=== PATIENT | female | born 1950 | race Caucasian/White ===

== ENCOUNTER 2016-05-20 13:00 | Inpatient (IN) | payer MEDICARE, MEDICAID ==
[~2016-05-20] VITALS: Ht 157.5 cm; Wt 95.5 kg
--- NOTE | ~2016-05-20 | DS ---
PATIENT'S NAME: ANTHONY COLLINS [facility] AGE: 65 Y [address] ROOM: [facility] [place], [place] [address] LOCATION: G3 ADMIT DATE: 05/26/2016 Discharge Summary DISCHARGE DATE: 05/29/2016 FAMILY PHYSICIAN: Racquel Wallace APRN ATTENDING PHYSICIAN: Boubacar Marsh This 65-year-old lady was admitted electively for lumbar fusion. She had grade 1 spondylolisthesis at the L4-L5 level and also has spinal stenosis at L3-L4 and L4-L5. She was taken to the operating room on the day of admission, had decompressive laminectomy at L3-L4 and L4-L5, and went on to have a transforaminal lumbar interbody fusion with TLIF at L3-L4 and L4-L5 along with instrumentation with pedicle screws and rods and posterolateral fusion. The procedure was carried out using the O-arm for placement of the pedicle screws. Postoperatively, she did quite well, leg pain was completely gone, and she was seen in consultation by Dr. Montelongo as well as the physical therapist and occupational therapist and the conclusion was that she would benefit from inpatient rehabilitation. She was subsequently transferred to the inpatient rehabilitation unit on 05/29/2016. At that time, the Hemovac was still placed in because she was draining more than 100 mL and the eventual plan is to remove the Hemovac a day or two after she has been transferred. The blood loss from the wound is less than 100 mL. FINAL DIAGNOSES: 1. Lumbar spondylolisthesis at L4-L5, grade 1. 2. Lumbar spinal stenosis at L3-L4 and L4-L5. MD YANETH LEBRON/cristina /[id number] d: 06/04/167 t: 06/09/16 1623, DISCHARGE SUMMARY
--- NOTE | ~2016-05-20 | OR ---
PATIENT'S NAME: ANTHONY COLLINS [facility] AGE: 65 Y [address] ROOM: [address] [place] [id number] LOCATION: [facility] ADMIT DATE: 05/26/2016 OR/Procedure Report DISCHARGE DATE: FAMILY PHYSICIAN: SUSAN STEIN APRN ATTENDING PHYSICIAN: Boubacar Marsh SURGEON: Boubacar Marsh MD WORD PROCESSOR: DATE OF PROCEDURE: 05/26/2016 PREOPERATIVE DIAGNOSES: 1. Lumbar spinal stenosis, L3-L4 and L4-L5. 2. L4-L5 spondylolisthesis, grade 1. POSTOPERATIVE DIAGNOSES: 1. Lumbar spinal stenosis, L3-L4 and L4-L5. 2. L4-L5 spondylolisthesis, grade 1. OPERATIONS PROPOSED AND PERFORMED: 1. Decompressive lumbar laminectomy at L3-L4 and L4-L5. 2. Transforaminal lumbar interbody fusion (TLIF) L3-L4 and L4-L5. 3. Posterior lateral fusion, L3-L4 and L4-L5. 4. Instrumentation using the July 3 system. 5. Insertion of a titanium spacer cage autograft. 6. Microscope neuronavigation using an O arm for placement of pedicle screws. 7. Fluoroscopy with interpretation. 8. Microscope. DESCRIPTION OF PROCEDURE: Under general anesthesia, the patient was positioned prone. The back was prepped and draped in the usual fashion. A midline linear incision was carried out extending from the spinous processes of L1 to the sacrum. The fascia was incised on either side of the midline. The paraspinal muscles were reflected from the lamina of L2, L3, L4, and L5 bilaterally. During this process, we used fluoroscopy to definitely determine our location. After exposing the lamina of L2 to L5, the O-arm clamp was fixed to the L2 spinous process and the plate holding the beads. The beads were then attached to the clamp. Camera was brought in. Camera recognized the beads. Next, the O-arm was then brought in. The wound was filled with sterile saline and then we used the O-arm to first of all get a scan to make sure that we covered the areas that we wanted to cover. Next, the whole spine was then scanned in the area we were interested in, fed to the computer, and thus we had the lumbar lamina placed on the computer. Having done this, we using the images on the computer projected onto the monitors, we were then able to go ahead and put the screws through the L3, L4, and L5 pedicles on either side into the vertebral bodies. After the placement of the screws, we then went PATIENT'S NAME: ANTHONY COLLINS [facility] AGE: 65 Y [address] ROOM: [place] [address] LOCATION: [facility] ADMIT DATE: 05/26/2016 OR/Procedure Report DISCHARGE DATE: FAMILY PHYSICIAN: SUSAN STEIN APRN ATTENDING PHYSICIAN: Boubacar Marsh ahead and scanned the patient again in the lumbar region and on reviewing the scan, it showed that the pedicle screws were in good position. The O-arm was then removed. Next, the spinous processes of L3, L4, and L5 were removed. The lamina was thinned out using the drill. Microscope was brought in. With the aid of the microscope, we did a complete laminectomy of L3, L4, and L5. At the L4-L5 segment, there was severe stenosis. At the L3-L4 segment, there was moderate stenosis. After adequately decompressing the canal at these levels, this entailed doing partial medial facetectomy and foraminotomy at these levels. We then directed our attention to doing the transforaminal lumbar interbody fusion using cages, titanium spacers. With the aid of the microscope and fluoroscopy, we were able to identify the L4-L5 segment. Unfortunately, the disk space was extremely narrow and would only take the width of the [place] knife. However, painstakingly, we went as far lateral as could so as to sneak in. We started by using the endplate carlitos, we started with a smallest one. We were able to tap it into the disk space and rotated it and doing so, we were able to get this carried out of the endplates more significantly were able to distend the disk space, we went ahead and we started with the size 6, went onto size 7, and then a size 8. After we did this, each time we carried this out, we go ahead and use the pituitary rongeurs to remove the plates as well as the remnants of the disk left in that disk space. After this had been done, I should point out that each time we did this we did use fluoroscopy to make sure that we were anterior enough, but at the same time, that we were not to far anterior with the carlitos. Next, we then used the sizer to get the appropriate size titanium spaces that we needed to use. After we had gotten this, we then got the titanium spacer, used 7 x 28 x 9, 6 degree angle and prior to tapping it into the empty disk space, we filled it with the patient's bone which we had gotten from the laminectomy and after filling the spacer with the bone, we then tapped above the spacer and the bone in it into the now empty disk space and this was done under fluoroscopy which then enabled us know that we were anterior enough. After this was done, we then directed our attention to the L3-L4 segment. I should point out that there was quite a lot of congested epidural vessels and therefore we had quite a lot of epidural bleeding which we were able to control with pressure as well as using the bipolar cautery. Next, we directed our attention to the L3-L4 level. At the L3- L4 level, we did a similar thing and the spaces we use for the L3-L4 level were the same as we used for the L4-L5 level. After this was done, we got hemostasis, but we also got extra hemostasis by using a powdered Gelfoam that was soaked in thrombin and most of this was washed out prior to closure of the wound. Next, by this time, there was not much epidural bleeding. Next, we then got the rods which we placed in the receptacle on the pedicle screws. The length of the rods we used was 60 and the set screws were then placed over the rods and tightened. This was carried out uneventfully. After this was done, the wound was thoroughly irrigated with bacitracin irrigation. A drain was then placed in the wound, it was placed in the epidural space and also between the muscle layers and brought out through a separate stab wound on the skin. PATIENT'S NAME: ANTHONY COLLINS [facility] AGE: 65 Y [address] ROOM: [address] [address] LOCATION: [facility] ADMIT DATE: 05/26/2016 OR/Procedure Report DISCHARGE DATE: FAMILY PHYSICIAN: SUSAN STEIN APRN ATTENDING PHYSICIAN: Boubacar Marsh The wound was then closed in layers; first the muscle and the fascia, subcutaneous tissue, and finally the skin. The patient tolerated the procedure well and was taken to the recovery room. ADDENDUM: While we were exposing the lamina, we also did expose the transverse processes, and after we had finished the TLIF, we then washed off the bone and placed it over the transverse processes which was quite easily seen on the right side. On the left side, we did place the bone outside the facet joints because exposure of the transverse processes was quite difficult on the left side. MD YANETH LEBRON/cristina /[id number] d: 05/26/167 t: 06/04/16 1352, OPERATIVE SUMMARY
--- NOTE | ~2016-05-20 | CON ---
PATIENT'S NAME: ANTHONY COLLINS [facility] AGE: 65 Y [address] ROOM: [place] [address] LOCATION: [facility] ADMIT DATE: 05/26/2016 Consultation DISCHARGE DATE: FAMILY PHYSICIAN: SUSAN STEIN APRN ATTENDING PHYSICIAN: Boubacar Marsh REFERRING PHYSICIAN: Santo Hoang MD This is a consult for Dr. Marsh. HISTORY OF PRESENT ILLNESS: This pleasant 65-year-old lady is referred for rehab/GIRP evaluation. She is at the present time status post: 1. Decompression at L3-L4 and L4-L5 with laminectomy. 2. Transforaminal lumbar interbody fusion (TLIF) of L3-L4 and L4-L5. 3. Posterolateral fusion of L3-L4 and L4-L5. 4. Instrumentation using July-3 system. 5. Insertion of titanium spacer cage autograft. 6. Microscope neuronavigation. 7. At the present time, she can comprehend, express without difficulty; this was done on 05/26/2016; details on records; to relieve lumbar spinal stenosis with marked difficulty with ambulation and pain with grade 1 spondylolisthesis. PAST MEDICAL HISTORY: 1. She has Parkinson, had difficulty with mobilization and had weakness in bilateral lower extremities, frequent falls, and she has also had some incontinence of bowel and bladder on and off. 2. She also has a history of tubal ligation. 3. Status post thyroidectomy. 4. Lumpectomy of right breast, benign. 5. Right knee arthroscopy. 6. Depression. 7. Hypertension. 8. Asthma. 9. Hypothyroid. 10. Moderately obese. PHYSICAL EXAMINATION: GENERAL: She is alert and oriented x3. VITAL SIGNS: Blood pressure 130/44, temperature 99.8 to 98.4, pulse 84, respirations 15. She is 5 feet 2 inches and weighs 95.4 kg. EXTREMITIES: She can at the present time move all 4. Muscle strength in bilateral lower extremities 4-/5. Neurologically intact. MEDICATIONS: PATIENT'S NAME: ANTHONY COLLINS [facility] AGE: 65 Y [address] ROOM: [place] [address] LOCATION: [facility] ADMIT DATE: 05/26/2016 Consultation DISCHARGE DATE: FAMILY PHYSICIAN: SUSAN STEIN APRN ATTENDING PHYSICIAN: Boubacar Marsh She is on the following medications: 1. Neosporin. 2. Zoloft. 3. Multivitamin. 4. Singulair. 5. Lasix. 6. Zyrtec. 7. Os-Danny with D. 8. Algin. 9. Asprin. 10. Protonix. 11. Tums. 12. Flonase. 13. Astelin nasal spray. 14. Crestor. 15. Lopressor. 16. Sinemet. 17. Dulera. 18. Dilaudid. 19. Lactated Ringer. 20. Naloxone. 21. Zofran. 22. . 23. Bisacodyl. 24. NaCl 0.9%. 25. Valtrex. 26. Nitroglycerin. 27. Robitussin. 28. Adrenaline. 29. Colace. 30. Cleocin. 31. Albuterol. 32. Tylenol. 33. Phenergan. 34. Hydromorphone. 35. Fentanyl. 36. Vancomycin. ASSESSMENT AND PLAN: She can at the present time transfer with moderate dental laboratory assistant, can take a few steps. We will go ahead and start from PT and OT, please see the orders. I feel this young lady will benefit from PATIENT'S NAME: ANTHONY COLLINS [facility] AGE: 65 Y [address] ROOM: [place] [address] LOCATION: [facility] ADMIT DATE: 05/26/2016 Consultation DISCHARGE DATE: FAMILY PHYSICIAN: SUSAN STEIN APRN ATTENDING PHYSICIAN: Boubacar Marsh intensive rehabilitation to be able to take care of herself. She lives alone and will be able to achieve that in about 2 weeks or so on intensive rehab. I did explain plan of care to her in detail and answered all her questions, and she verbalized understanding and in agreement. Thank you for this referral. Please see the orders that I have instructed for possible use of Lovenox if okay with Dr. Marsh. SANTO HOANG MD WMS/modl /[id number] d: 05/27/162134 t: 05/29/16 0841, CONSULTATION REPORT
[2016-05-20] MEDS ORDERED: LOPRESSOR25 MG PO (13:16)
[2016-05-20] MEDS ORDERED: ADVAIR 500-501 EACH INH (13:17)
[2016-05-20] MEDS ORDERED: PROVENTIL OR V6.7 GM INH (13:18)
[2016-05-20] MEDS ORDERED: OSCAL500 MG PO (13:20)
[2016-05-20] MEDS ORDERED: ALIGN4 MG PO (13:20)
[2016-05-20] MEDS ORDERED: CALCIUM 600 +1 EA13 PO (13:21)
[2016-05-20] MEDS ORDERED: ASPIRIN325 MG PO (13:21)
[2016-05-20] MEDS ORDERED: SINEMET 25/2501 TAB PO (13:22)
[2016-05-20] MEDS ORDERED: COLACE100 MG PO (13:23)
[2016-05-20] MEDS ORDERED: CRESTOR5 MG PO (13:24)
[2016-05-20] MEDS ORDERED: EPIPEN0.3 MG IM (13:25)
[2016-05-20] MEDS ORDERED: LASIX40 MG PO (13:25)
[2016-05-20] MEDS ORDERED: MOBIC7.5 MG PO (13:26)
[2016-05-20] MEDS ORDERED: THERA-VITE W/ B1 TAB PO (13:26)
[2016-05-20] MEDS ORDERED: NEXIUM40 MG PO (13:27)
[2016-05-20] MEDS ORDERED: NASONEX17 GM NOSE (13:27)
[2016-05-20] MEDS ORDERED: NITROSTAT0.4 MG SL (13:28)
[2016-05-20] MEDS ORDERED: ALBUTEROL2.5 MG/31 INH (13:29)
[2016-05-20] MEDS ORDERED: PROLIA60 MG/ML SUB-Q (13:30)
[2016-05-20] MEDS ORDERED: ROBAFEN DM CGH118 ML PO (13:31)
[2016-05-20] MEDS ORDERED: SINGULAIR10 MG PO (13:32)
[2016-05-20] MEDS ORDERED: TYLENOL EXTRA500 MG PO (13:32)
[2016-05-20] MEDS ORDERED: ZOLOFT100 MG PO (13:33)
[2016-05-20] MEDS ORDERED: ZYRTEC10 MG PO (13:33)
[2016-05-20] MEDS ORDERED: VALTREX500 MG PO (13:39)
[2016-05-20] MEDS ORDERED: CLEOCIN150 MG PO (13:39)
[2016-05-20] MEDS ORDERED: NASONEX17 GM (14:32)
[2016-05-26] MEDS ORDERED: TUMS REGULAR ST1 TAB PO (07:24)
[2016-05-26 08:24] LABS: BASOPHIL # 0.1 K/uL (0.0-0.2); BASOPHIL % 0.7 %; EOSINOPHIL # 0.2 K/uL (0.0-0.5); EOSINOPHIL % 1.8 %; HEMATOCRIT 36.9 % (33.0-46.0); HEMOGLOBIN 11.8 g/dL (10.0-15.0); IMMATURE GRANULOCYTE % 0.2 %; LYMPHOCYTE # 1.6 K/uL (0.8-4.0); LYMPHOCYTE % 17.6 %; MCH 30.8 pg (27.0-34.0); MCV 96.3 fl (83.0-98.0); MONOCYTE # 0.7 K/uL (0.0-1.0); MONOCYTE % 8.2 %; MPV 10.7 fl (9.4-12.4); NEUTROPHIL # (ANC) 6.3 K/uL (1.8-7.8); NEUTROPHIL % 71.5 %; NRBC % 0 /100WBC (0-0.00); PLATELET COUNT 219 K/uL (150-450); RBC 3.83 M/uL (3.50-5.50); RDW-CV 12.8 % (11.9-14.6); WBC 8.9 K/uL (4.0-11.0)
[2016-05-26] MEDS ORDERED: PROVENTIL OR V6.7 GM INH (18:15)
--- NOTE | 2016-05-27 04:39 | NUR ---
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
--- NOTE | 2016-05-27 15:33 | NUR ---
Introduced self and CM role to patient. Discussed how she was feeling and how her surgery went. She identified that she lives alone at her home in [place], [place] and there is no family or friends available to help care for her upon discharge. Pt stated that her daughter who lives in [place], [place] is going to bring her a lift chair and motorized scooter, but she can't stay with her mom due to her job and will need to return back quickly. It is not safe for pt to return back to her home without support. Pt does not want to go to a group home. We discussed GIRP option, and told her I will return and we can discuss options when we have a better idea of her progress and what is available. Shortly after visit, RADHA Santos contacted me and said that Dr. Marsh wanted to know the plan for pt. She told him plan for GIRP and he believed it is a good plan. There was a Dr. Montelongo consult made by nurse. 1300 Called Racquel at [facility] to inform her of pt. 1530 Called up to [facility] [address] and asked nurses if they knew the result of consultation, but they weren't sure. Called Racquel and she stated Reginald believes she is a good candidate for GIRP. Racquel stated she will call RADHA Lemus in the morning to inform her on bed availability for pt. Will continue to follow and assist. CM Gl Accountant TH.
--- NOTE | 2016-05-27 17:44 | NUR ---
Significant Event:GROUP HOME SUPERVISOR stopped at 1440. [place] one tab x2 last at 1632. Martin removed at 1715. Hemavac with 290ml out. IV saline lock. Zofran 4mg at 1416 for nausea. Up to chair with 2 assist. Back brace on when OOB. O2 at 2L per nc. Abrasions to face. Redness between breast, abdominal folds, thigh. Follow up:
--- NOTE | 2016-05-28 04:40 | NUR ---
Significant Event: AROUSES EASILY. A/O X 3. LITTLE SLEEPY AFTER PAIN MED GIVEN. IV SALINE LOCKS INTACT X 2. ON CONTINUOUS ETCO2 MONITORING. TAKES FLUIDS, NO NAUSEA. HEARTBURN, GIVEN SPRIT. HELPED AFTERWARDS. BACK DRSGS HAS SMALL AMOUNT BLOODY DRAINAGE NOTED AROUND HEMOVAC AREA. VAC EMPTIED 90ML BLOODY DRAINAGE. PATIENT DENIES ANY NUMBNESS OR TINGLING TO UPPER OR LOWER EXTREMITIES. SOME DIFFICULTY MOVING LEGS, MAINLY LEFT. BILATERAL CALF PNEUMATICS ON. INCENTIVE USAGE THIS SHIFT. AT 0040 PL[address] ON BEDPAN , NO VOID. AT 0045 BLADDER SCANNED FOR 464 ML, REPORTED TO CHARGE NURSE. AT 0200 2 ASSIST UP TO COMMODE WITH WALKER AND GAITBELT, RETURN TO BED AT 0215, NO VOID. ENCOURAGE TO TAKE MORE FLUIDS. Follow up:
--- NOTE | 2016-05-28 06:08 | NUR ---
Significant Event: PATIENT UP TO COMMODE [id number] VOIDED 150ML URINE, 0600 RETURNED TO BED. 2 ASSIST GAITBELT AND WH/WALKER. REPOSITIONED TO LEFT SIDE. ICE BAG TO BACK. Follow up:
[2016-05-28 06:21] LABS: HEMOGLOBIN 9.4 g/dL (10.0-15.0)
--- NOTE | 2016-05-28 09:20 | NUR ---
Racquel from [facility] called and they can accept patient tomorrow at 0900. [address] Marsh and was fine with this plan. 1040 Spoke to the patient and wrote information on the marker board. Updated charge nurse and community organization director Candice. Packet started and orders on the chart.
--- NOTE | 2016-05-28 17:02 | NUR ---
Significant Event: PATIENT ALERT AND ORIENTED X3. BACK DRESSING CHANGED, INCISION APPROXIMATED, LATASHA INTACT, STER[place] BARRIER DRESSING APPLIED. HEMOVAC PATENT/INTACT WITH 185ML OUT. UP TO CHAIR AND COMMODE WITH 1 ASSIST, USE OF WALKER/GAIT BELT, BACK BRACE ON WHEN UP. PATIENT VOIDING WITHOUT DIFFICULTY. O2 AT 2L/NC. RATES BACK PAIN 5-4 ON PAIN SCALE, PAIN WELL CONTROLLED WITH NORCO 1 TAB GIVEN X2 LAST AT 1545. ABRASIONS TO FACE, ABDOMEN, AND THIGH. CSM ASSESSMENTS WNL TO BILATERAL UPPER AND LOWER EXTREMITIES. KNEE HIGH LUPILLO HOSE AND CALF PUMPS ON. PLEASANT AND COOPERATIVE WITH CARES. Follow up: REHAB TOMORROW AT 0900
--- NOTE | 2016-05-29 03:41 | NUR ---
Shift Summary: Patient ambulates with standby assist/walker. Has difficulty and very slow getting OOB. Wears lumbar brace when up. Patient took one norco last at 2107. Going to Rehab today at 0900 to Room 3296.
[2016-05-29 05:32] LABS: HEMATOCRIT 28.6 % (33.0-46.0)
--- NOTE | 2016-05-29 09:04 | NUR ---
Pt alert and oriented. She is one assist transfer with brace, gait belt and walker. Goes slowly but steady. Back dressing dry and intact and changed yesterday. Hemovac in place and 90 ml out last noc. Pt voids in bathroom or on commode. Pt states no numbness, tingling or pain in legs. Only pain is in icision back area. Last norco at 0730 for pain rated at 3. Pt uses IS at 1000. Ate all breakfast and says appetite improving. No nausea. Passes flatus and no BM. Tried to wean off O2 this morni but sats 82-84 without O2, so back on at 2 liters. Pt has skin breakdown bilat cheeks from tape in OR - scabbed and no drng. neosporin on. ALso breakdown Rt thigh possibly from catheter tape. slight blister there. Also redness under breasts. Pt states she is allergic to tape. Also had about 8 hr surgery. Lovenox has been on hold due to large hemovac output. Hgb 9.0 today. Pt has chronic loose cough from her allergies.
[2016-05-29] MEDS ORDERED: MOBIC7.5 MG PO (16:24)
[2016-09-10] MEDS ORDERED: OXYGEN M-15 INH (13:34)
[2016-09-10] MEDS ORDERED: CPAP INH (13:34)
[2016-09-14] MEDS ORDERED: PERCOCET 5-3251 EACH PO (14:40)
== END 2016-05-29 09:49 | DRG 460 ==
LOC: G3N 05-26 06:37
PROVIDERS: ADMIT Neurological Surgery
PROC: 0ST20ZZ Resection of Lumbar Vertebral Disc, Open Approach (ICD-10-PCS; principal; 2016-05-26)
PROC: 0SG10A1 (ICD-10-PCS; 2016-05-26)
DX: M43.16 Spondylolisthesis, lumbar region (principal); G20 Parkinson's disease; I10 Essential (primary) hypertension; M48.06 Spinal stenosis, lumbar region; J45.909 Unspecified asthma, uncomplicated; G25.81 Restless legs syndrome; E78.5 Hyperlipidemia, unspecified; J30.9 Allergic rhinitis, unspecified; F32.9 Major depressive disorder, single episode, unspecified; E03.9 Hypothyroidism, unspecified; Z68.38 Body mass index [BMI] 38.0-38.9, adult
CPT/HCPCS: C1713; J1100; J1170; J2001; J2405; J2550; J3370; J7030; J7040; J7120

== ENCOUNTER 2016-05-29 09:58 | Inpatient (IN) | payer MEDICARE, MEDICAID ==
[~2016-05-29] VITALS: Ht 157.5 cm; Wt 101.3 kg
--- NOTE | ~2016-05-29 | DS ---
PATIENT'S NAME: ANTHONY COLLINS [facility] AGE: 65 Y [address] ROOM: [address] [place] [address] LOCATION: [facility] ADMIT DATE: 05/29/2016 Discharge Summary DISCHARGE DATE: FAMILY PHYSICIAN: Racquel Wallace APRN ATTENDING PHYSICIAN: Santo Montelongo This 65-year-old lady was admitted to Rehab Unit at [facility] on 05/29/2016 and is discharged on 06/05/2016 to home. 1. Unstable gait. 2. Dependent activities of daily self-care. 3. Status post lumbar spine stenosis. 4. Status post decompression laminectomy with TLIF L3-4, L4-5, details on record per Dr. Marsh, and done on 05/26/2016, details are on record. At the present time, she is doing well, alert and oriented x3, feels well. VITAL SIGNS: Vitals are as follows blood pressure 121/64, temperature 98.2, pulse 91, and respiratory rate 16. She is with LSO when up and can walk up to 180 feet x2 and 150 feet x2 and feeling well. She is not to drive until she is reevaluated. I have given her home health and [id number] encounter was completed on 06/04/2016. She is to follow with her family physician as soon as possible. She is on the following medication and all renewal with her family physician. Medication she is on as follows: 1. Ecotrin 325 mg p.o. daily. 2. Azelastine hydrochloride 137 mcg inhalation each nostril twice daily. 3. Align 4 mg everyday p.o. 4. Tums 500 mg 3 times daily. 5. Os-Danny D 500 mg p.o. daily. 6. Sinemet 25/250 1 tablet p.o. at night. 7. Zyrtec 10 mg p.o. daily. 8. Flonase 50 mcg puff 2 sprays each nostril twice daily. 9. Lasix 40 mg in the morning. 10. Anusol HS one suppository twice daily rectally. 11. Lopressor 25 mg p.o. twice daily. 12. Singulair 10 mg p.o. daily. 13. Theragran-M 1 tablet p.o. daily. 14. Neosporin topical as needed. 15. Protonix 40 mg p.o. daily. 16. K tablet 20 mEq p.o. daily. 17. Crestor 5 mg at night. PATIENT'S NAME: ANTHONY COLLINS [facility] AGE: 65 Y [address] ROOM: [address] [address] LOCATION: [facility] ADMIT DATE: 05/29/2016 Discharge Summary DISCHARGE DATE: FAMILY PHYSICIAN: Racquel Wallace APRN ATTENDING PHYSICIAN: Santo Montelongo 18. Zoloft 100 mg in the morning. 19. Dulera 2 puffs inhalation twice. 20. [place] 5/325 1 tablet p.o. q.4-6 as needed, 36 of them. 21. Benadryl 25 mg p.o. q.4 h. as needed. 22. MOM 30 mL at bedtime as needed. 23. Albuterol sulfate 2.5 mg inhalation twice daily. All medications, renewals, and change per her family physician. She will follow with me in 3 weeks. Follow up with Dr. Marsh as soon as he sees fit. She must follow with her family physician as soon as possible. All the above was explained to her in detail. She verbalized understanding and agreement with plan of care. Please, no driving until she is reevaluated. FINAL DIAGNOSES: 1. Unstable gait. 2. Dependent activities of daily self-care. 3. Status post L3-4, L4-5 transforaminal lumbar interbody fusion and decompression laminectomy to relieve spinal stenosis. 4. Chronic obstructive pulmonary disease. 5. Allergic rhinitis. 6. External rectal hemorrhoids. 7. Hypertension. 8. Reflux gastric disease. 9. Depression. 10. Osteoporosis. 11. Possible Parkinson. All the above was explained to the patient in detail. She verbalized understanding and agreement with plan of care. MD MICHELA HERNANDEZ/niralil /[id number] d: 06/05/168 t: 06/06/16924, DISCHARGE SUMMARY
--- NOTE | ~2016-05-29 | CON ---
PATIENT'S NAME: ANTHONY COLLINS [facility] AGE: 65 Y [address] ROOM: [id number] [place], [place] [address] LOCATION: [facility] ADMIT DATE: 05/29/2016 Consultation DISCHARGE DATE: 06/06/2016 FAMILY PHYSICIAN: Racquel Wallace APRN ATTENDING PHYSICIAN: Santo Hoang DATE OF CONSULTATION: 06/02/2016 REFERRING PHYSICIAN: Ivan Manuel MD Team members reporting include Dr. Hoang; Racquel Kemp, social staff worker; Nely Rodarte, RN; Mable Dennis, PT; Babs Kelly, OT; Supriya Saxena, therapeutic rec; and Sister Jennifer Gutierrez, Pastoral Care. CURRENT STATUS: Anthony is a 65-year-old woman who admitted to our inpatient rehab unit on May 29, 2016, following a decompression lumbar laminectomy of L3 to L5, TLIF, and posterolateral fusion with instrumentation. The patient also has a history of severe asthma; osteoporosis; hypertension; restless legs syndrome; obstructive sleep apnea, currently not on CPAP; hypothyroidism; and obesity. The patient is having some difficulty with bleeding hemorrhoids. Anusol was ordered to assist with this. The patient's incisions are open to air. She has some tape abrasions. The patient takes [place] for pain. She can transfer sit to supine at standby; supine to sit, minimal assistance; sit to stand and stand to sit, mod I; and surface to surface transfers, standby. She can walk 200 feet with a four-wheeled walker at standby assistance, and she can climb 8 stairs with 2 railings at contact guard assistance. She can negotiate a ramp at standby assistance. Her goals for PT were set at mod I. the patient is able to dress her upper and lower body at standby; grooming and bathing, standby; toilet and shower transfers, contact guard assistance; and feeding, standby. Her goals have been set for mod I. car transfers are slated for the end of the week. The patient has been very open to pastoral care. DISCHARGE PLAN: The patient is receiving 3 hours of PT and OT Wednesday through Wednesday. The patient has daily rehab, nursing, and physiatry involvement as well as therapeutic recreational services 4 days per week. The patient has shown functional improvement and is progressing. Please see her plan of care for specific goals. Plan is for the patient to discharge on June 06, 2016. The patient will have a trend oximetry done prior to discharge to see if the patient needs oxygen at home. In addition, the patient did want home health care which was lined up. PATIENT'S NAME: ANTHONY COLLINS [facility] AGE: 65 Y [address] ROOM: [place] [address] LOCATION: [facility] ADMIT DATE: 05/29/2016 Consultation DISCHARGE DATE: 06/06/2016 FAMILY PHYSICIAN: Racquel Wallace APRN ATTENDING PHYSICIAN: Santo Hoang FOR SANTO HOANG MD TD/modl /[id number] d: t: 06/12/16 1834, CONSULTATION REPORT
--- NOTE | ~2016-05-29 | HP ---
PATIENT'S NAME: ANTHONY COLLINS [facility] AGE: 65 Y [address] ROOM: [place] [address] LOCATION: [facility] ADMIT DATE: 05/29/2016 History & Physical DISCHARGE DATE: FAMILY PHYSICIAN: SUSAN STEIN APRN ATTENDING PHYSICIAN: Santo Hoang DATE OF SERVICE: HISTORY OF PRESENT ILLNESS: This 65-year-old lady is admitted to rehabilitation unit on 05/29 for continuous medical treatment and intensive rehabilitation. 1. Unstable gait. 2. Dependent activities and self-care with her lumbar spinal stenosis. She is at the present time, status post L3-L4 and L4-L5 decompression laminectomy and allograft cage to relieve spinal stenosis with weakness in bilateral lower extremity and frequent falling, and she is still at risk of falling. 3. She is admitted for intensive rehabilitation and continuous medical treatment. 4. I saw this lady in initial consult and on 05/27/2016, recommended intensive rehabilitation for about 2 weeks aiming to discharge to home on modified independence and on admission day, 05/29/2016, I re-evaluated her and she is a good candidate for intensive rehabilitation for about 2 weeks aiming to discharge to home on modified independence. She is status post: 1. Decompression laminectomy L3-L4 and L4-L5. 2. Translumbar interbody fusion, TLIF of L3-L4 and L4-L5. 3. Posterior lateral fusion of L3-L4 and L4-L5. 4. Using July 3 system instrumentation. 5. Insertion of titanium spacer cage allograft using microscopic navigation done on 05/26/2016, details on record. PHYSICAL EXAMINATION: GENERAL APPEARANCE: She is at the present time, alert and oriented on admission. VITAL SIGNS: Her vitals were as follows; blood pressure 111/48, temperature 98.9, pulse 94, and respiratory rate 16. She is 5 feet 2 inches tall and weighs 95.4 kg. MUSCULOSKELETAL: She is at the present time, weightbearing as tolerated with hands-on. She is on regular diet. ALLERGIES: SHE IS ALLERGIC TO CEPHALOSPORIN. PAST MEDICAL HISTORY: PATIENT'S NAME: ANTHONY COLLINS [facility] AGE: 65 Y [address] ROOM: [place] [address] LOCATION: [facility] ADMIT DATE: 05/29/2016 History & Physical DISCHARGE DATE: FAMILY PHYSICIAN: SUSAN STEIN APRN ATTENDING PHYSICIAN: Santo Hoang Past history of significance as follows: 1. Parkinson. 2. Incontinence of bowel and bladder on and off. 3. Thyroidectomy. 4. Status post right breast lumpectomy, benign. 5. Hypertension. 6. Hypothyroidism. 7. Moderately obese. 8. Right knee scope per history. 9. Asthma. 10. History of tubal ligation. At the present time, we will put on intensive PT and OT 3 hours per day, 15 hours per week for the coming 2 weeks aiming to discharge to home at modified independence. We will send in a.m. for UA. Did send in a.m. on 05/30 for UA, CBC, and CMS, and it came as UA within normal limits except for bacteria many, but there is no complaint, we will watch. LABORATORY DATA: 1. CBC: WBC 9.4, RBC 2.67, hemoglobin 8.2, hematocrit 26.2, and platelets 165,000. 2. CMS: Sodium 143, and potassium 3.4, we will supplement. 3. Chloride 105, CO2 of 35, BUN 11, creatinine 0.5, and glucose 102. 4. Prealbumin is 6.0. ASSESSMENT AND PLAN: 1. She is able to tolerate working on NuStep at level 3 for about 10 minutes. 2. She can ambulate up to 70 feet with contact guard from Dr. Marsh. 3. We will keep the lumbosacral orthosis on until she is seated and they will remove it for her showering and after drying will put it on. We will continue to watch her CMS and hemoglobin and hematocrit. 4. Plan is to put on intensive therapy, PT and OT for 3 hours per day, 15 hours per week for about 2 weeks aiming to discharge on modified independence and follow on outpatient basis. 5. We will keep on Dr. Marsh's census to follow and for hospitalist census to follow also. 6. All the above was explained to her in detail and her questions were answered in detail. She verbalized understanding and agreement. SANTO HOANG MD PATIENT'S NAME: ANTHONY COLLINS [facility] AGE: 65 Y [address] ROOM: [place] [address] LOCATION: [facility] ADMIT DATE: 05/29/2016 History & Physical DISCHARGE DATE: FAMILY PHYSICIAN: SUSAN STEIN APRN ATTENDING PHYSICIAN: Santo Hoang/cristina /[id number] D: [id number] T: [id number] HISTORY & PHYSICAL
--- NOTE | ~2016-05-29 | DS ---
PATIENT'S NAME: ANTHONY COLLINS [facility] AGE: 65 Y [address] ROOM: [place] [address] LOCATION: [facility] ADMIT DATE: 05/29/2016 Discharge Summary DISCHARGE DATE: 06/06/2016 FAMILY PHYSICIAN: Racquel Wallace APRN ATTENDING PHYSICIAN: Santo Montelongo ADDENDUM: This lady was supposed to be discharged on 06/05 and it was put on hold until 06/06 when she was discharged. Overnight, she did undergo an overnight oximetry. Details on record and she was given oxygen to use at home, again details on record. All medications and diagnoses are the same. She was discharged on 06/06 and I will see her in about 4 weeks on outpatient basis. All the above was explained to her. She verbalized understanding and agreement with plan of care. MD MICHELA HERNANDEZ/cristina /[id number] d: 06/10/16509 t: 06/10/16 08, DISCHARGE SUMMARY
--- NOTE | ~2016-05-29 | CON ---
PATIENT'S NAME: ANTHONY COLLINS [facility] AGE: 65 Y [address] ROOM: [place] [address] LOCATION: [facility] ADMIT DATE: 05/29/2016 Consultation DISCHARGE DATE: FAMILY PHYSICIAN: SUSAN STEIN APRN ATTENDING PHYSICIAN: Santo Montelongo DATE OF CONSULTATION: 05/30/2016 REFERRING PHYSICIAN: DARIO BLACKBURN MD REQUESTING PHYSICIAN: Santo Montelongo MD CONSULTING PHYSICIAN: Dario Blackburn MD REASON FOR CONSULTATION: Medical management in acute rehab unit. HISTORY OF PRESENT ILLNESS: The patient is a 65-year-old female with past medical history further detailed below. She has undergone an elective decompressive lumbar laminectomy of L3- L4 as well as L4-L5 with pedicle screws and instrumentation. She was transferred to [facility] on the . She is currently getting physical therapy, and an internal medicine consult was requested. At this point, her complaint is constipation, which has been present for almost a week. She denies any other nausea, vomiting, chest pain, shortness of breath, or syncope. REVIEW OF SYSTEMS: All systems have been reviewed and are negative aside from the pertinent positives mentioned above. PAST MEDICAL HISTORY: As reported by the patient, is significant for: 1. Severe asthma. 2. Osteoporosis. 3. Essential hypertension. 4. Restless legs syndrome. 5. Obstructive sleep apnea, currently not on CPAP. 6. Hypothyroidism. 7. Obesity. PAST SURGICAL HISTORY: Significant for lumbar laminectomy as above. PATIENT'S NAME: ANTHONY COLLINS [facility] AGE: 65 Y [address] ROOM: [place] [address] LOCATION: [facility] ADMIT DATE: 05/29/2016 Consultation DISCHARGE DATE: FAMILY PHYSICIAN: SUSAN STEIN APRN ATTENDING PHYSICIAN: Santo Montelongo SOCIAL HISTORY: The patient denies any history of or ongoing toxic habits. FAMILY HISTORY: Reviewed and noncontributory due to known underlying etiology for her presentation. CURRENT MEDICATIONS: Include: 1. Potassium. 2. Sertraline. 3. Multivitamin. 4. Montelukast. 5. Furosemide. 6. Cetirizine. 7. Calcium carbonate. 8. Align. 9. Aspirin. 10. Pantoprazole. 11. Rosuvastatin. 12. Metoprolol. 13. Fluticasone. 14. Carbidopa and levodopa. 15. Azelastine. 16. Mometasone. 17. Albuterol. 18. Acetaminophen. 19. Valacyclovir as needed. 20. Colace. 21. Clindamycin as needed for dental procedures. 22. Bisacodyl. PHYSICAL EXAMINATION: VITAL SIGNS: Temperature 98.4, pulse is 85, respirations are 20, blood pressure 130/64, and saturating 98% on room air. GENERAL: Appears morbidly obese. An elderly female, in no acute distress. NEUROLOGIC: Nonfocal. EYES: Pupils are equal and reactive to light. LYMPHATIC: No cervical lymphadenopathy. ENDOCRINE: No thyromegaly. LUNGS: Clear to auscultation in all reid. HEART: Rate is regular with no appreciable murmurs, gallops, or rubs. GASTROINTESTINAL: Abdomen is obese, soft, nontender, and nondistended. Slightly diminished bowel sounds. GENITOURINARY: No costovertebral angle tenderness. PATIENT'S NAME: ANTHONY COLLINS [facility] AGE: 65 Y [address] ROOM: [place] [address] LOCATION: [facility] ADMIT DATE: 05/29/2016 Consultation DISCHARGE DATE: FAMILY PHYSICIAN: SUSAN STEIN APRN ATTENDING PHYSICIAN: Santo Montelongo VASCULAR: 2+ pedal pulses. MUSCULOSKELETAL: Deferred. PSYCHIATRIC: Appropriate mood, cognition, and affect. SKIN: Multiple abrasion jhaveri where surgical tape was used on her face, I believe this is probably related to her hyperallergenic state. LABORATORY DATA: Studies available so far are lab results which are significant for potassium of 3.4, bicarbonate of 35, anion gap of 6.4, albumin of 1.7, prealbumin of 6, hemoglobin of 8.2, and UA which shows 500 leukocytes. IMPRESSION AND RECOMMENDATIONS: This is a 65-year-old female who is recuperating from a lumbar laminectomy. At this point, we will make the following recommendations. 1. Hypoalbuminemia/severe protein-calorie malnutrition based on her prealbumin of 6. The patient should be placed on a high-protein diet. We might consider investigating the underlying etiology for her low albumin and prealbumin. 2. Anemia. The patient has had several colonoscopies recently for recurrent polyps. We will check her iron studies as well as B12 and folate as these may be somehow related to her protein-calorie malnutrition. We might have to start her on iron, but not until we achieve a good bowel regimen. 3. Severe asthma. She has been continued on her inhalers. 4. Restless legs syndrome. She has been continued on her levodopa and carbidopa. 5. Obstructive sleep apnea. The patient may benefit with a CPAP study once she is discharged. 6. Accelerated hypertension. We will monitor the patient's blood pressure and continue her on her current regimen. 7. Additional management will depend on clinical course. Thank you for involving us in the care of this patient. We will follow along. Total time dedicated to this consult is 35 minutes. MD MARLINE SENA/cristina /[id number] d: 05/30/16 1806 t: 06/02/16 1243, CONSULTATION REPORT
--- NOTE | ~2016-05-29 | PUL ---
PATIENT'S NAME: ANTHONY COLLINS [facility] AGE: 65 Y [address] ROOM: [address] [address] LOCATION: [facility] ADMIT DATE: 05/29/2016 Pulmonary DISCHARGE DATE: 06/06/2016 FAMILY PHYSICIAN: Racquel Wallace APRN ATTENDING PHYSICIAN: Santo Montelongo NAME OF PROCEDURE: Overnight Pulse Oximetry DATE OF PROCEDURE: June 05 to June 06, 2016 REASON FOR EXAM: Nocturnal hypoxemia RESULTS: The test was performed on room air. The recording time was 9 hours, 55 minutes, and 52 seconds, with a total valid sampling time of 9 hours, 55 minutes, and 44 seconds. The highest pulse was 99, lowest pulse was 65, with a mean pulse of 80. The highest SpO2 was 96%, lowest SpO2 was 68%, with a mean SpO2 of 88.1%. The patient spent 4 hours, 19 minutes, and 12 seconds with SpO2 less than 89%, representing 43.5% of the total sleep time. The desaturation event index was significantly elevated at 31.1. PHYSICIAN INTERPRETATION: The patient has evidence of severe nocturnal hypoxia and would qualify for supplemental oxygen as per Medicare criteria. However, because of the severity of her nocturnal hypoxia with an elevated desaturation event index a sleep study is recommended at this time. MD KRISS ZAMORA/gianluca /[id number] dtt: 06/09/16 1554 , SHAWANDA MOSES dtd: 06/09/16 0822
[~2016-05-29 09:58] MED LIST: ADVAIR 500-501 EACH INH; ALBUTEROL2.5 MG/31 INH; ALIGN4 MG PO; ASPIRIN325 MG PO; CALCIUM 600 +1 EA13 PO; CLEOCIN150 MG PO; COLACE100 MG PO; CRESTOR5 MG PO; EPIPEN0.3 MG IM; LASIX40 MG PO; LOPRESSOR25 MG PO; MOBIC7.5 MG PO; NASONEX17 GM; NASONEX17 GM NOSE; NEXIUM40 MG PO; NITROSTAT0.4 MG SL; OSCAL500 MG PO; PROLIA60 MG/ML SUB-Q; PROVENTIL OR V6.7 GM INH; ROBAFEN DM CGH118 ML PO; SINEMET 25/2501 TAB PO; SINGULAIR10 MG PO; THERA-VITE W/ B1 TAB PO; TUMS REGULAR ST1 TAB PO; TYLENOL EXTRA500 MG PO; VALTREX500 MG PO; ZOLOFT100 MG PO; ZYRTEC10 MG PO
[2016-05-29 14:15] LABS: BILIRUBIN URINE NEGATIVE (NEGATIVE); BLOOD URINE 10 /UL (NEGATIVE); COLOR URINE YELLOW (YELLOW); GLUCOSE URINE NEGATIVE (NEGATIVE); KETONE URINE NEGATIVE (NEGATIVE); LEUKOCYTES URINE 500 /UL (NEGATIVE); NITRITE URINE NEGATIVE (NEGATIVE); PROTEIN URINE NEGATIVE (NEGATIVE); SPEC GRAVITY URINE 1.015 (1.003-1.035); UROBILINOGEN URINE NORMAL (NORMAL)
[2016-05-29 14:16] LABS: TURBIDITY URINE 2+ (CLEAR)
[2016-05-29 14:22] LABS: WBC URINE 20-50 #/HPF (NEGATIVE)
[2016-05-29 14:23] LABS: BACTERIA URINE MANY (NEGATIVE); MUCUS URINE 1+ (NEGATIVE); RENAL EPITH URINE 0-2 #/HPF (NEGATIVE); WBC CAST URINE 0-2 #/LPF (NEGATIVE)
[2016-05-29] MEDS ORDERED: MOBIC7.5 MG PO (16:24)
[2016-05-30 07:10] LABS: BASOPHIL # 0.1 K/uL (0.0-0.2); BASOPHIL % 0.5 %; EOSINOPHIL # 0.3 K/uL (0.0-0.5); EOSINOPHIL % 3.4 %; HEMATOCRIT 26.2 % (33.0-46.0); HEMOGLOBIN 8.2 g/dL (10.0-15.0); IMMATURE GRANULOCYTE % 0.3 %; LYMPHOCYTE # 1.5 K/uL (0.8-4.0); LYMPHOCYTE % 15.8 %; MCHC 31.3 gm/dL (32.0-36.5); MCV 98.1 fl (83.0-98.0); MONOCYTE # 1.1 K/uL (0.0-1.0); MONOCYTE % 11.3 %; MPV 10.5 fl (9.4-12.4); NEUTROPHIL # (ANC) 6.5 K/uL (1.8-7.8); NEUTROPHIL % 68.7 %; NRBC % 0 /100WBC (0-0.00); RDW-CV 12.9 % (11.9-14.6); WBC 9.4 K/uL (4.0-11.0)
[2016-05-30 07:11] LABS: MCH 30.7 pg (27.0-34.0); PLATELET COUNT 165 K/uL (150-450); RBC 2.67 M/uL (3.50-5.50)
[2016-05-30 07:26] LABS: ALK PHOS 67 IU/L (33-138); ALT 25 IU/L (12-78); AST 58 IU/L (10-40); BLOOD UREA NITROGEN 11 mg/dL (6-24); CALCIUM 7.5 mg/dL (8.5-10.5); CHLORIDE 105 mMol/L (96-110); CREATININE 0.5 mg/dL (0.5-1.1); ESTIMATED GFR (MDRD EQUATION) > 60; POTASSIUM 3.4 mMol/L (3.7-5.1); SODIUM 143 mMol/L (135-145); TOTAL BILIRUBIN 0.4 mg/dL (0.0-1.5); TOTAL PROTEIN 5.3 g/dL (6.0-8.4)
[2016-05-30 07:35] LABS: ALBUMIN 1.7 gm/dL (3.5-5.0); ANION GAP 6.4 (10.0-19.0); CO2 35 mMol/L (22-32)
[2016-05-31 05:49] LABS: BASOPHIL # 0.1 K/uL (0.0-0.2); BASOPHIL % 0.6 %; EOSINOPHIL # 0.5 K/uL (0.0-0.5); HEMATOCRIT 28.4 % (33.0-46.0); HEMOGLOBIN 8.8 g/dL (10.0-15.0); IMMATURE GRANULOCYTE # 0.1 K/uL (0.0-0.3); IMMATURE GRANULOCYTE % 0.6 %; LYMPHOCYTE # 1.6 K/uL (0.8-4.0); LYMPHOCYTE % 18.1 %; MCH 30.7 pg (27.0-34.0); MONOCYTE % 11.5 %; MPV 10.6 fl (9.4-12.4); NEUTROPHIL # (ANC) 5.6 K/uL (1.8-7.8); NEUTROPHIL % 63.2 %; NRBC % 0 /100WBC (0-0.00); RBC 2.87 M/uL (3.50-5.50); RDW-CV 12.6 % (11.9-14.6); WBC 8.8 K/uL (4.0-11.0)
[2016-05-31 05:53] LABS: PLATELET COUNT 202 K/uL (150-450)
[2016-05-31 06:09] LABS: ALK PHOS 77 IU/L (33-138); ALT 31 IU/L (12-78); ANION GAP 10.5 (10.0-19.0); AST 71 IU/L (10-40); BLOOD UREA NITROGEN 12 mg/dL (6-24); CALCIUM 7.9 mg/dL (8.5-10.5); CHLORIDE 104 mMol/L (96-110); CO2 33 mMol/L (22-32); CREATININE 0.5 mg/dL (0.5-1.1); ESTIMATED GFR (MDRD EQUATION) > 60; POTASSIUM 3.5 mMol/L (3.7-5.1); SODIUM 144 mMol/L (135-145); TOTAL PROTEIN 5.6 g/dL (6.0-8.4)
[2016-05-31 06:11] LABS: ALBUMIN 1.8 gm/dL (3.5-5.0); TOTAL BILIRUBIN 0.3 mg/dL (0.0-1.5)
[2016-06-01 06:04] LABS: HEMATOCRIT 30.5 % (33.0-46.0); HEMOGLOBIN 9.6 g/dL (10.0-15.0)
[2016-06-01 06:25] LABS: ALK PHOS 85 IU/L (33-138); ALT 44 IU/L (12-78); ANION GAP 9.6 (10.0-19.0); AST 59 IU/L (10-40); BLOOD UREA NITROGEN 17 mg/dL (6-24); CALCIUM 8.1 mg/dL (8.5-10.5); CHLORIDE 103 mMol/L (96-110); CO2 32 mMol/L (22-32); CREATININE 0.5 mg/dL (0.5-1.1); ESTIMATED GFR (MDRD EQUATION) > 60; POTASSIUM 3.6 mMol/L (3.7-5.1); SODIUM 141 mMol/L (135-145); TOTAL BILIRUBIN 0.3 mg/dL (0.0-1.5); TOTAL PROTEIN 6.1 g/dL (6.0-8.4)
[2016-06-02 09:53] LABS: BILIRUBIN URINE NEGATIVE (NEGATIVE); BLOOD URINE 10 /UL (NEGATIVE); COLOR URINE YELLOW (YELLOW); GLUCOSE URINE NEGATIVE (NEGATIVE); KETONE URINE NEGATIVE (NEGATIVE); LEUKOCYTES URINE 500 /UL (NEGATIVE); NITRITE URINE POSITIVE (NEGATIVE); PROTEIN URINE NEGATIVE (NEGATIVE); TURBIDITY URINE CLEAR (CLEAR); UROBILINOGEN URINE NORMAL (NORMAL)
[2016-06-02 10:05] LABS: WBC URINE FULL FIELD #/HPF (NEGATIVE)
[2016-06-02 10:06] LABS: RBC URINE 0-2 #/HPF (NEGATIVE)
[2016-06-02 10:07] LABS: BACTERIA URINE MANY (NEGATIVE); MUCUS URINE 2+ (NEGATIVE)
[2016-06-03 15:32] LABS: HEMATOCRIT 29.4 % (33.0-46.0); HEMOGLOBIN 9.1 g/dL (10.0-15.0)
[2016-06-04] MEDS ORDERED: ANUSOL R (15:50)
[2016-06-04] MEDS ORDERED: NEOSPORIN OIN14.2 GM TOP (15:58)
[2016-06-04] MEDS ORDERED: NORCO 5-325 TA1 EACH PO (16:01)
[2016-06-04] MEDS ORDERED: BENADRYL25 MG PO (16:04)
[2016-06-04] MEDS ORDERED: MILK OF MA400 MG/5 M PO (16:06)
[2016-06-04] MEDS ORDERED: MACROBID 100 M100 MG PO (16:11)
[2016-09-10] MEDS ORDERED: CPAP INH (13:34)
[2016-09-10] MEDS ORDERED: OXYGEN M-15 INH (13:34)
[2016-09-14] MEDS ORDERED: PERCOCET 5-3251 EACH PO (14:40)
== END 2016-06-06 14:49 | disposition home health service (06) | DRG 559 ==
LOC: GIRP 09:58
PROVIDERS: Nurse Practitioner Family; ADMIT Physical Medicine & Rehabilitation
PROC: F08Z3ZZ Feeding/Eating Treatment (ICD-10-PCS; principal; 2016-05-29)
PROC: F08Z1ZZ Dressing Techniques Treatment (ICD-10-PCS; principal; 2016-05-29)
PROC: F08Z2ZZ Grooming/Personal Hygiene Treatment (ICD-10-PCS; principal; 2016-05-29)
PROC: F07Z9YZ Gait Training/Functional Ambulation Treatment using Other Equipment (ICD-10-PCS; principal; 2016-05-29)
DX: Z47.89 Encounter for other orthopedic aftercare (principal); E43 Unspecified severe protein-calorie malnutrition; G20 Parkinson's disease; Z68.41 Body mass index [BMI] 40.0-44.9, adult; E87.6 Hypokalemia; D64.9 Anemia, unspecified; E66.01 Morbid (severe) obesity due to excess calories; E03.9 Hypothyroidism, unspecified; F32.9 Major depressive disorder, single episode, unspecified; G47.33 Obstructive sleep apnea (adult) (pediatric); G25.81 Restless legs syndrome; I10 Essential (primary) hypertension; K64.4 Residual hemorrhoidal skin tags; J45.909 Unspecified asthma, uncomplicated; J44.9 Chronic obstructive pulmonary disease, unspecified; M81.0 Age-related osteoporosis without current pathological fracture; R26.89 Other abnormalities of gait and mobility; Z98.1 Arthrodesis status; Z91.81 History of falling; Z88.0 Allergy status to penicillin; Z79.82 Long term (current) use of aspirin; K21.9 Gastro-esophageal reflux disease without esophagitis; Z99.81 Dependence on supplemental oxygen

== ENCOUNTER → 2016-07-29 | Outpatient (CLI) | payer MEDICARE, MEDICAID ==
[~2016-07-29] MED LIST changes: +ANUSOL R; +BENADRYL25 MG PO; +CPAP INH; +MACROBID 100 M100 MG PO; +MILK OF MA400 MG/5 M PO; +NEOSPORIN OIN14.2 GM TOP; +NORCO 5-325 TA1 EACH PO; +OXYGEN M-15 INH; +PERCOCET 5-3251 EACH PO
== END | disposition disaster alternative care site (69) ==
LOC: GRAD 12:45
DX: Z09 Encounter for follow-up examination after completed treatment for conditions other than malignant neoplasm (principal); S33.141A Dislocation of L4/L5 lumbar vertebra, initial encounter; M47.896 Other spondylosis, lumbar region; Z98.1 Arthrodesis status; Z98.890 Other specified postprocedural states

== ENCOUNTER → 2016-09-14 | Day surgery (SDC) | payer MEDICARE, MEDICAID, BC ==
[~2016-09-14] VITALS: Ht 157.5 cm; Wt 92.5 kg
--- NOTE | ~2016-09-14 | OR ---
PATIENT'S NAME: ANTHONY COLLINS [facility] AGE: 66 Y [address] ROOM: [place] [address] LOCATION: [facility] ADMIT DATE: 09/14/2016 OR/Procedure Report DISCHARGE DATE: FAMILY PHYSICIAN: SUSAN STEIN APRN ATTENDING PHYSICIAN: Boubacar Marsh SURGEON: Boubacar Marsh MD PRECISE WINDER: DATE OF PROCEDURE: 09/14/2016 PREOPERATIVE DIAGNOSIS: Left carpal tunnel syndrome. POSTOPERATIVE DIAGNOSIS: Left carpal tunnel syndrome. OPERATION PROPOSED AND PERFORMED: Left carpal tunnel release. PROCEDURE IN DETAIL: On the left median nerve block, which was augmented by local infiltration with 1% Xylocaine with epinephrine, the left hand and distal forearm were prepped and draped in the usual fashion. Tourniquet was applied. Next, an incision was then made just medial to the most lateral palmar crease. This was carried all the way to the wrist, and we had to infiltrate the region of incision locally with Xylocaine with epinephrine. Incision in the transverse carpal ligament was then carried through until we were able to identify the median nerve. WOUND CLOSURE: Working on the medial aspect of the median nerve, we went ahead and incised the transverse carpal ligament in its proximal and distal limits, and after this was done, the wound was then closed in a single layer. The tourniquet was released. DISPOSITION: The patient tolerated the procedure well, and was taken to the outpatient waiting area. MD YANETH LEBRON/niralil /[id number] d: 09/14/162132 t: 10/16/16 1218, OPERATIVE SUMMARY
== END ==
LOC: GPOC 09-10 14:00 → GSDC 08:55 → GPOC 10:30
PROC: 01N50ZZ Release Median Nerve, Open Approach (ICD-10-PCS; principal; 2016-09-14)
DX: G56.02 Carpal tunnel syndrome, left upper limb (principal); G40.909 Epilepsy, unspecified, not intractable, without status epilepticus; M19.90 Unspecified osteoarthritis, unspecified site; M81.0 Age-related osteoporosis without current pathological fracture; K21.9 Gastro-esophageal reflux disease without esophagitis; E78.00 Pure hypercholesterolemia, unspecified; I10 Essential (primary) hypertension; J44.9 Chronic obstructive pulmonary disease, unspecified; G47.30 Sleep apnea, unspecified; Z99.89 Dependence on other enabling machines and devices; F41.9 Anxiety disorder, unspecified; F32.9 Major depressive disorder, single episode, unspecified; F41.0 Panic disorder [episodic paroxysmal anxiety]; Z98.890 Other specified postprocedural states; Z98.51 Tubal ligation status; Z79.82 Long term (current) use of aspirin; Z79.891 Long term (current) use of opiate analgesic; Z79.899 Other long term (current) drug therapy; E78.5 Hyperlipidemia, unspecified; Z88.0 Allergy status to penicillin; Z88.2 Allergy status to sulfonamides; Z88.1 Allergy status to other antibiotic agents; Z88.8 Allergy status to other drugs, medicaments and biological substances; Z88.5 Allergy status to narcotic agent; Z91.011 Allergy to milk products
CPT/HCPCS: J2001; J2250; J3370; J7120